=== PATIENT | female | born 2005 | race African-American/Black ===

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

== ENCOUNTER 2023-10-27 19:21 | Emergency (ER) | payer OTHER ==
[2023-10-27] MEDS ORDERED: Ibuprofen 200 MG TAB ONE (20:29)
== END 2023-10-27 21:13 | disposition home or self-care (01) ==
LOC: CSHERS 19:21
DX: S93.402A Sprain of unspecified ligament of left ankle, initial encounter (principal); X50.1XXA Overexertion from prolonged static or awkward postures, initial encounter